=== PATIENT | female | born 1975 | race Caucasian/White ===

== ENCOUNTER → 2018-01-17 | Outpatient (CLI) | payer BC ==
[~2018-01-17] MED LIST: FLOXIN OTIC DROP5 ML OS; PERCOCET 325 MG1 TA2 PO; PRENATAL 191 CTB PO; ZARAH PO
== END ==
LOC: MC.RAD 07:00
DX: Z12.31 Encounter for screening mammogram for malignant neoplasm of breast (principal)

== ENCOUNTER → 2019-01-22 | Outpatient (CLI) | payer BC | LOC: MC.RAD 06:53 | DX: Z12.31 Encounter for screening mammogram for malignant neoplasm of breast (principal) ==

== ENCOUNTER → 2020-01-25 | Outpatient (CLI) | payer BC | LOC: MC.RAD 07:10 | DX: Z12.31 Encounter for screening mammogram for malignant neoplasm of breast (principal) ==

== ENCOUNTER → 2021-02-15 | Outpatient (CLI) | payer BC | LOC: MC.RAD 13:41 | DX: Z12.31 Encounter for screening mammogram for malignant neoplasm of breast (principal) ==